=== PATIENT | male | born 1965 | race Caucasian/White ===

== ENCOUNTER 2020-07-29 20:26 | Emergency (ER) | payer OTHER ==
[~2020-07-29] VITALS: Ht 177.8 cm; Wt 61.7 kg
[2020-07-29] MEDS ORDERED: LIDOCAINE 2% JEL UROJET 10 ML MM ONE (20:37)
--- NOTE | 2020-07-29 20:45 | NUR ---
15F F/C STARTED USING ASEPTIC TECHNIQUE WITH CLEAR PALE YELLOW URINE DRAINING.
--- NOTE | 2020-07-29 21:35 | NUR ---
PT WAS PROVIDED W/ A LEG BAG , EMPTIED F/C BAG W/ 1000ML OF UEINE. LEG BAG DRANINIG CLEAR PALE YELLOW URINE. MEDICALLY STBLE FOR D/C PER MD. Patient discharged to home in stable condition. Written and verbal after care instructions given. Patient verbalizes understanding of instruction.
[2020-07-29 21:37] VITALS: BP 128/78
== END 2020-07-29 21:37 | disposition home or self-care (01) ==
LOC: ER 20:26
DX: R33.9 Retention of urine, unspecified (principal)
CPT/HCPCS: 99283; J3490